=== PATIENT | male | born 1995 | race Caucasian/White ===

== ENCOUNTER 2019-09-16 12:09 | Emergency (ER) | payer SELFPAY ==
[2019-09-16] MEDS ORDERED: LIDOCAINE 1% W/EPI 1:100,000 MDV 20 ML VIAL ONE (12:24)
--- NOTE | 2019-09-16 13:16 | RAD REPORT ---
EXAM DESCRIPTION: RAD - Elbow Left 3 View - 09/16/2019 1:05 pm CLINICAL HISTORY: PAIN Trauma, pain and injury COMPARISON: <Comparisons> FINDINGS: No acute fracture or dislocation.
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
[2019-09-16 14:18] VITALS: TEMP 97.6
[2019-09-16 14:19] VITALS: O2SAT 100
[2019-09-16 14:21] VITALS: BP 135/88
== END 2019-09-16 14:04 | disposition home or self-care (01) ==
LOC: ER 12:09
PROC: 0JQ10ZZ Repair Face Subcutaneous Tissue and Fascia, Open Approach (ICD-10-PCS; principal; 2019-09-16)
DX: S01.111A Laceration without foreign body of right eyelid and periocular area, initial encounter (principal); Y00.XXXA Assault by blunt object, initial encounter; Y93.9 Activity, unspecified; Y92.9 Unspecified place or not applicable
CPT/HCPCS: 99284